=== PATIENT | male | born 1975 | race Hispanic/Latino ===

== ENCOUNTER 2019-07-25 07:48 | Emergency (ER) | payer OTHER ==
[2019-07-25] MEDS ORDERED: ONDANSETRON 4 MG/2 ML INJ IV ONE (09:46)
[2019-07-25] MEDS ORDERED: diphenhydrAMINE 50 MG/ML VIAL IV ONE (09:46)
[2019-07-25] MEDS ORDERED: SODIUM CHLORIDE 0.9% 1000 ML 1,000 ML IV ONE (09:46)
[2019-07-25] MEDS ORDERED: KETOROLAC 30 MG/1 ML INJ IV ONE (09:46)
[2019-07-25] MEDS ORDERED: hydrALAZINE 20 MG/1 ML INJ IV ONE (09:49)
[2019-07-25] MEDS ORDERED: diphenhydrAMINE 50 MG/ML VIAL ONE (10:00)
--- NOTE | 2019-07-25 10:19 | Emergency Department Report ---
ED Headache HPI - General Chief Complaint: Dizziness Stated Complaint: WEAK/DIZZY/LIGHT HEADED Time Seen by Provider: 07/25/19 09:17 - History of Present Illness Initial Comments: Is a 44-year-old male with a history of hypertension taking amlodipine who presents to the ED complaining of throbbing squeezing type headache localized to the frontal head 2 days. Patient states this morning search x-rays dizziness. He denies nausea or vomiting, blurry vision, fever, chills. He denies trauma or any injury consciousness. Timing/Duration: 24 hours Quality: mild, achy, throbbing Head Injury Location: frontal Recent Head Trauma: no recent headache/trauma Associated Symptoms: denies symptoms. denies: loss of consciousness, nausea/vomiting, nasal congestion, nasal drainage Allergies/Adverse Reactions: Allergies No Known Allergies Allergy (Verified 07/25/19 10:05) Home Medications: Ambulatory Orders Butalb/Acetaminophen/Caffeine [Fioricet 50-300-40 mg CAP] 1 cap PO Q8HR #30 cap 07/25/19 amLODIPine 07/25/19 ED Review of Systems ROS: Stated complaint: WEAK/DIZZY/LIGHT HEADED Other details as noted in HPI Comment: All other systems reviewed and negative ED Past Medical Hx - Past Medical History Previous Medical History?: Yes Hx Hypertension: Yes Hx Psychiatric Treatment: Yes (anxiety) - Surgical History Past Surgical History?: No - Social History Smoking Status: Current Every Day Smoker Substance Use Type: None - Medications Home Medications: Home Medications Medication Instructions Recorded Confirmed Last Taken Type Butalb/Acetaminophen/Caffeine 1 cap PO Q8HR #30 cap 07/25/19 Unknown Rx [Fioricet 50-300-40 mg CAP] amLODIPine 07/25/19 Unknown History ED Physical Exam - General Limitations: No Limitations General appearance: alert, in no apparent distress - Head Head exam: Present: atraumatic, normocephalic - Eye Eye exam: Present: normal appearance - ENT ENT exam: Present: mucous membranes moist - Neck Neck exam: Present: normal inspection - Respiratory Respiratory exam: Present: normal lung sounds bilaterally. Absent: respiratory distress - Cardiovascular Cardiovascular Exam: Present: regular rate, normal rhythm. Absent: systolic murmur, diastolic murmur, rubs, gallop - GI/Abdominal GI/Abdominal exam: Present: soft, normal bowel sounds - Rectal Rectal exam: Present: deferred - Extremities Exam Extremities exam: Present: normal inspection - Back Exam Back exam: Present: normal inspection - Neurological Exam Neurological exam: Present: alert, oriented X3 - Psychiatric Psychiatric exam: Present: normal affect, normal mood - Skin Skin exam: Present: warm, dry, intact, normal color. Absent: rash ED Course Vital Signs 07/25/19 07/25/19 07/25/19 07:49 10:26 10:27 Temperature 98.2 F Pulse Rate 74 69 Respiratory 20 18 18 Rate Blood Pressure 181/117 Blood Pressure 155/90 [Left] O2 Sat by Pulse 99 98 99 Oximetry 07/25/19 10:51 Temperature Pulse Rate 68 Respiratory 18 Rate Blood Pressure Blood Pressure 159/100 [Left] O2 Sat by Pulse 97 Oximetry ED Medical Decision Making - Lab Data Result diagrams: 07/25/19 10:00 07/25/19 10:00 Laboratory Last Values WBC 9.5 K/mm3 (4.5-11.0) 07/25/19 10:00 RBC 6.15 M/mm3 (3.65-5.03) H 07/25/19 10:00 Hgb 16.5 gm/dl (11.8-15.2) H 07/25/19 10:00 Hct 48.2 % (35.5-45.6) H 07/25/19 10:00 MCV 78 fl (84-94) L 07/25/19 10:00 MCH 27 pg (28-32) L 07/25/19 10:00 MCHC 34 % (32-34) 07/25/19 10:00 RDW 13.9 % (13.2-15.2) 07/25/19 10:00 Plt Count 182 K/mm3 (140-440) 07/25/19 10:00 Lymph % (Auto) 26.2 % (13.4-35.0) 07/25/19 10:00 [place] % (Auto) 5.4 % (0.0-7.3) 07/25/19 10:00 Eos % (Auto) 3.7 % (0.0-4.3) 07/25/19 10:00 Baso % (Auto) 1.2 % (0.0-1.8) 07/25/19 10:00 Lymph # 2.5 K/mm3 (1.2-5.4) 07/25/19 10:00 [place] # 0.5 K/mm3 (0.0-0.8) 07/25/19 10:00 Eos # 0.4 K/mm3 (0.0-0.4) 07/25/19 10:00 Baso # 0.1 K/mm3 (0.0-0.1) 07/25/19 10:00 Seg Neutrophils % 63.5 % (40.0-70.0) 07/25/19 10:00 Seg Neutrophils # 6.0 K/mm3 (1.8-7.7) 07/25/19 10:00 Sodium 144 mmol/L (137-145) 07/25/19 10:00 Potassium 4.2 mmol/L (3.6-5.0) 07/25/19 10:00 Chloride 105.3 mmol/L (98-107) 07/25/19 10:00 Carbon Dioxide 23 mmol/L (22-30) 07/25/19 10:00 Anion Gap 20 mmol/L 07/25/19 10:00 BUN 9 mg/dL (9-20) 07/25/19 10:00 Creatinine 1.0 mg/dL (0.8-1.5) 07/25/19 10:00 Estimated GFR > 60 ml/min 07/25/19 10:00 BUN/Creatinine Ratio 9 % 07/25/19 10:00 Glucose 97 mg/dL (75-100) 07/25/19 10:00 Calcium 8.6 mg/dL (8.4-10.2) 07/25/19 10:00 Total Bilirubin 0.30 mg/dL (0.1-1.2) 07/25/19 10:00 AST 28 units/L (5-40) 07/25/19 10:00 ALT 30 units/L (7-56) 07/25/19 10:00 Alkaline Phosphatase 80 units/L (35-129) 07/25/19 10:00 Total Protein 6.9 g/dL (6.3-8.2) 07/25/19 10:00 Albumin 4.2 g/dL (3.9-5) 07/25/19 10:00 Albumin/Globulin Ratio 1.6 % 07/25/19 10:00 - Medical Decision Making 44-year-old male with a history of hypertension presents with headache. All labs are completed and within normal limits. Patient received 1 L of fluids, IV meds. upon reassessment patient states that he is feeling much better. Blood pressure rechecked used prior to discharge. Discussed the patient to follow up with his primary care physician for blood pressure management and possible change in blood pressure medication. Vital signs are normal patient is in no acute or sensory distress. Patient poses no neurological deficit.Signs on instructions. Critical care attestation.: If time is entered above; I have spent that time in minutes in the direct care of this critically ill patient, excluding procedure time. ED Disposition Clinical Impression: Uncontrolled hypertension, Acute headache Disposition: - TO HOME OR SELFCARE Is pt being admited?: No Does the pt Need Aspirin: No Condition: Stable Instructions: Tension Headache (ED), Acute Headache (ED), Hypertension (ED) Additional Instructions: Make sure to follow up with the primary care physician as discussed. Take all your medications as you've been prescribed. If you have any worsening symptoms or develop new symptoms please return to ED immediately. Prescriptions: Butalb/Acetaminophen/Caffeine [Fioricet 50-300-40 mg CAP] 1 cap PO Q8HR #30 cap Referrals: BRAULIO GRAHAM MD [Primary Care Provider] - 3-5 Days Forms: Accompanied Note, Work/School Release Form(ED) Time of Disposition: 11:15
[2019-07-25 10:41] LABS: Basophils # (Auto) 0.1 K/mm3 (0.0-0.1); Basophils % (Auto) 1.2 % (0.0-1.8); Eosinophils # (Auto) 0.4 K/mm3 (0.0-0.4); Eosinophils % (Auto) 3.7 % (0.0-4.3); Hematocrit 48.2 % (35.5-45.6); Hemoglobin 16.5 gm/dl (11.8-15.2); Lymphocytes # (Auto) 2.5 K/mm3 (1.2-5.4); Lymphocytes % (Auto) 26.2 % (13.4-35.0); Mean Corpuscular HGB Conc 34 % (32-34); Mean Corpuscular Volume 78 fl (84-94); Monocytes # (Auto) 0.5 K/mm3 (0.0-0.8); Monocytes % (Auto) 5.4 % (0.0-7.3); Platelet Count 182 K/mm3 (140-440); Red Blood Count 6.15 M/mm3 (3.65-5.03); Red Cell Distribution Width 13.9 % (13.2-15.2)
[2019-07-25 10:45] LABS: Alanine Aminotransferase 30 units/L (7-56); Albumin 4.2 g/dL (3.9-5); BUN/Creatinine Ratio 9; Blood Urea Nitrogen 9 mg/dL (9-20); Calcium 8.6 mg/dL (8.4-10.2); Hemolysis Index 63
[2019-07-25 10:52] VITALS: BP 159/100
== END 2019-07-25 11:36 | disposition home or self-care (01) ==
LOC: ED 07:48
DX: I10 Essential (primary) hypertension (principal)
CPT/HCPCS: 36415; 80053; 85025; 96361; 96374; 96375; 99283; J1200; J1885; J2405; J7030